=== PATIENT | male | born 1985 | race Hispanic/Latino ===

== ENCOUNTER 2021-11-05 22:46 | Emergency (ER) | payer OTHER ==
[~2021-11-05] VITALS: Ht 188 cm; Wt 165.1 kg
[2021-11-05 23:17] LABS: BASOPHILS % (AUTO) 0.7 % (0.0-5.0); EOSINOPHILS % (AUTO) 1.8 % (0.0-8.0); HEMATOCRIT 40.6 % (42-54); LYMPHOCYTES % (AUTO) 34.1 % (21.0-51.0); MEAN CORPUSCULAR HEMOGLOBIN 27.5 pg (27.0-33.0); MEAN CORPUSCULAR HGB CONC 33.3 g/dL (32.0-36.0); MEAN CORPUSCULAR VOLUME 82.7 fL (79-99); NEUTROPHILS % (AUTO) 54.5 % (40.0-77.0); PLATELET COUNT (AUTO) 337 K/uL (130-400); RED BLOOD CELL COUNT(AUTO) 4.91 MIL/uL (4.50-6.20); RED CELL DISTRIBUTION WIDTH 13.9 % (11.0-15.5); WHITE BLOOD COUNT (AUTO) 13.7 K/uL (4.8-10.8)
[2021-11-05 23:21] LABS: APPEARANCE,URINE CLEAR (CLEAR); BILIRUBIN,URINE NEGATIVE (NEGATIVE); COLOR,URINE YELLOW (YELLOW); GLUCOSE, URINE (UA) NEGATIVE (NEGATIVE); KETONES,URINE NEGATIVE (NEGATIVE); LEUKOCYTE ESTERASE ,URINE NEGATIVE (NEGATIVE); NITRATE,URINE NEGATIVE (NEGATIVE); OCCULT BLOOD,URINE NEGATIVE (NEGATIVE); PROTEIN,URINE 70 mg/dL (NEGATIVE); UROBILINOGEN,URINE 0.2 mg/dL (0.2-1.0)
[2021-11-05 23:25] LABS: CREATININE 1.1 mg/dL (0.5-1.5); POTASSIUM 3.9 mmol/L (3.5-5.1)
[2021-11-05 23:34] LABS: ALBUMIN 3.4 g/dL (3.5-5.0)
[2021-11-05 23:41] VITALS: BP 115/76
[2021-11-05 23:57] LABS: BACTERIA,URINE Rare /HPF (None Seen); RBC,URINE 0-1 /HPF (0-1); WBC,URINE 0-1 /HPF (0-1)
== END 2021-11-06 00:03 | disposition home or self-care (01) ==
LOC: EDH 22:46
DX: E11.9 Type 2 diabetes mellitus without complications (principal); I10 Essential (primary) hypertension; E66.01 Morbid (severe) obesity due to excess calories; Z88.0 Allergy status to penicillin; Z68.41 Body mass index [BMI] 40.0-44.9, adult
CPT/HCPCS: 36415; 71045; 80053; 81001; 84484; 85025

== ENCOUNTER 2024-07-11 18:55 | Emergency (ER) | payer SELFPAY ==
[~2024-07-11] VITALS: Ht 188 cm; Wt 170.1 kg
[2024-07-11 19:26] VITALS: BP 148/94; PULSE 86; RESP 18; TEMP 99.5; O2SAT 98
[2024-07-11] MEDS ORDERED: PRED20TA3 PO (19:26)
[2024-07-11] MEDS ORDERED: ACYC-138 PO (19:26)
--- NOTE | 2024-07-11 19:26 | ERN ---
General Chief Complaint: Face Pain/Problem Stated Complaint: BELLS PALSY Time Seen by MD: 18:56 Time Seen by Midlevel: 18:56 Source: patient History of Present Illness Initial Comments The patient is a 38-year-old male with no significant past medical history presenting to the emergency department for evaluation of right sided facial droop. Patient states that last night he developed weakness to his right eyelid along with the right side of his mouth. He was seen at [facility] today who diagnosed him with Cao's palsy but sent him to the ER to make sure he was not having a stroke. The patient denies any focal weakness to his upper and lower extremities. Allergies: Coded Allergies: Penicillins (Unverified Allergy, Unknown, 11/05/21) Home Meds Active Scripts Acyclovir (Acyclovir) 800 Mg Tablet, 1 TAB PO 5XDAY for 7 Days, #35 TAB 0 Refills Prov:KARTHIK DUNBAR 07/11/24 Prednisone (Prednisone) 20 Mg Tablet, 1 TAB PO TID for 4 Days, #12 TAB 0 Refills Prov:KARTHIK DUNBAR 07/11/24 Past Medical History Past Medical History: Diabetes-Type II, Hypertension Medical History Other: Morbid obese Past Surgical History: None Family History Family History: Negative Social History Social History: Lives with family ROS Dictation CONSTITUTIONAL: Negative except for HPI HEAD/FACE: Negative except for HPI EENT: Negative except for HPI RESPIRATORY: Negative except for HPI GASTROINTESTINAL/ABDOMINAL: Negative except for HPI GENITOURINARY: Negative except for HPI MUSCULOSKELETAL: Negative except for HPI INTEGUMENTARY: Negative except for HPI NEUROLOGICAL/PSYCH: Negative except for HPI HEMATOLOGIC/LYMPHATIC: Negative except for HPI All Systems Negative, Except as noted above. 13 point review of systems assessed and all negative except for above. Physical Exam Physical Exam Dictation Vital Signs reviewed General Appearance: Alert, oriented x 3, no acute distress, well developed, nourished. Head and Face: non-traumatic. Eyes: PERRL, pink conjunctivas, eyelid no trauma, anterior chamber with arcus senilis. Ears: Pinnas intact and no signs of trauma or erythema ear canals clear and no discharge TM no erythema Nose: No discharge, no bleeding. Oropharynx: Mouth normal, tongue pink, pharynx clear,no erythema, tonsils no exudates, no abscesses noted, mucous membrane moist Neck: Supple, non-tender, no thyromegaly, no masses, no JVD, no bruits Breast:Deferred Chest:No tenderness, no crepitus, no paradoxical movement, no retractions Lungs:Clear, well-ventilated, symmetric, no rales, no wheezing, no rhonchi, no stridor, good breath sounds bilaterally Heart: Regular rate, regular rhythm, no murmur, no gallops Vascular: no peripheral edema, Abdomen: Soft, positive bowel sounds, nondistended, no guarding, nontender, no rebound, no masses no hepatomegaly, no splenomegaly, no Swift's sign, no hernias. Rectal: Deferred Genital: Deferred Neurological: Normal speech, motor function intact, sensory function intact, right facial droop with forehead involvement Musculoskeletal: Neck nontender, full range of motion, back nontender, full range of motion, Extremities: nontender, full range of motion Skin: Color pink, dry, no turgor, no rash, no lacerations, no abrasions, no contusions. Lymphatic: Deferred MDM MDM: The patient is a 38-year-old male with no significant past medical history presenting to the emergency department for evaluation of right sided facial droop. Patient states that last night he developed weakness to his right eyelid along with the right side of his mouth. He was seen at [facility] today who diagnosed him with Cao's palsy but sent him to the ER to make sure he was not having a stroke. The patient denies any focal weakness to his upper and lower extremities. On physical examination the patient is alert and oriented. He is ambulatory without assistance with a normal gait. He has a right facial droop with forehead involvement. He has normal sensation to face. He has 5/5 strength to bilateral upper and lower extremities. No pronator drift. His physical examination is consistent with Cao's palsy. We will discharged home with supportive management. No need for advanced imaging. Differential diagnosis: CVA, Cao's palsy There are no social concerns with this patient. Prescription drug management Prescriptions will include: Prednisone, acyclovir Medical management and examination interpretation discussions were had by me with other qualified healthcare professionals as indicated for the patient's care. ED Course Vital Signs Date Time Temp Pulse Resp B/P (MAP) Pulse Ox O2 Delivery O2 Flow Rate FiO2 07/11/24 19:26 99.5 86 18 148/94 98 Room Air* 0 21 07/11/24 19:00 99.7 87 18 154/102 95 Room Air DX & DISP Disposition: Discharge Departure Impression: Primary Impression: Cao's palsy Condition: Stable Scripts Acyclovir (Acyclovir) 800 Mg Tablet 1 TAB PO 5XDAY for 7 Days, #35 TAB 0 Refills Prov: KARTHIK DUNBAR 07/11/24 Prednisone (Prednisone) 20 Mg Tablet 1 TAB PO TID for 4 Days, #12 TAB 0 Refills Prov: KARTHIK DUNBAR 07/11/24 Additional Instructions: Your physical examination is consistent with Cao's palsy. I have given you antivirals and steroids which should help improve your symptoms over the next couple of days. Please wear an eye patch at night or taper eye shut to avoid any corneal abrasion/infection. Use lubricating eyedrops during the day. Follow up with your primary care doctor in 2-3 days for repeat evaluation. Referrals: SELF,REFERRAL (PCP) Time of Disposition: 19:17 I have reviewed the case, and I agree with, Diagnosis and Plan I performed the substantive portion of the visit. I have reviewed and personally made and approve the management plan that is documented in the note by myself or the JEREMIAS. I acknowledge for responsibility for the patient's management plan. KARTHIK DUNBAR July 11, 2024 19:26
== END 2024-07-11 19:36 | disposition home or self-care (01) ==
LOC: EDH 18:55
DX: G51.0 Bell's palsy (principal); E11.9 Type 2 diabetes mellitus without complications; E66.01 Morbid (severe) obesity due to excess calories; I10 Essential (primary) hypertension; Z79.52 Long term (current) use of systemic steroids; Z88.0 Allergy status to penicillin; Z68.42 Body mass index [BMI] 45.0-49.9, adult
CPT/HCPCS: 99284